=== PATIENT | male | born 1990 | race Caucasian/White ===

== ENCOUNTER 2017-04-27 10:39 | Emergency (ER) | payer SELFPAY ==
[2017-04-27] MEDS ORDERED: IBUPROFEN 800 MG TABLET PO ONE (11:00)
[2017-04-27] MEDS ORDERED: CLINDAMYCIN HCL 150 MG CAPSULE PO ONE (11:00)
[2017-04-27] MEDS ORDERED: OXYCODONE-ACETAMINOPHEN 5-325 MG TABLET PO ONE (11:00)
--- NOTE | 2017-04-27 11:03 | ER Document Report ---
HPI - HPI Patient complains to provider of: dental pain Onset: Last week Onset/Duration: Persistent Quality of pain: Achy Pain Level: 4 Context: Patient presents complaining of dental pain for the past week. Patient noticed that he is started to have facial swelling. Patient denies any fever. Associated Symptoms: Earache, Sore throat, Other - dental pain. denies: Fever Exacerbated by: Denies Relieved by: Denies Similar symptoms previously: Yes Recently seen / treated by doctor: No - ROS ROS below otherwise negative: Yes Systems Reviewed and Negative: Yes All other systems reviewed and negative - CONSTITUTIONAL Constitutional: DENIES: Fever - EENT EENT: REPORTS: Ear Pain Notes: dental pain - GASTROINTESTINAL Gastrointestinal: DENIES: Nausea, Patient vomiting - MUSCULOSKELETAL Musculoskeletal: DENIES: Back Pain, Neck Pain - DERM Skin Color: Normal Skin Problems: None Past Medical History - General Information source: Patient - Social History Smoking Status: Current Every Day Smoker Frequency of alcohol use: None Drug Abuse: None Occupation: none Lives with: Family Family History: Reviewed & Not Pertinent - Medical History Medical History: Negative Renal/ Medical History: Denies: Hx Peritoneal Dialysis Surgical Hx: Negative Vertical Provider Document - CONSTITUTIONAL Agree With Documented VS: Yes Exam Limitations: No Limitations General Appearance: WD/WN, No Apparent Distress - INFECTION CONTROL TRAVEL OUTSIDE OF THE [place] IN LAST 30 DAYS: No - HEENT HEENT: Atraumatic, Normocephalic. negative: Pharyngeal Exudate, Pharyngeal Tenderness, Pharyngeal Erythema, Tympanic Membrane Red, Tympanic Membrane Bulging Mouth Diagram: 1 - fracture, tenderness with gingival induration, no drainable abscess - NECK Neck: Lymphadenopathy-Left - upper anterior cervical chain - RESPIRATORY Respiratory: Breath Sounds Normal, No Respiratory Distress O2 Sat by Pulse Oximetry: 98 - CARDIOVASCULAR Cardiovascular: Regular Rate, Regular Rhythm, No Murmur - MUSCULOSKELETAL/EXTREMETIES Musculoskeletal/Extremeties: MAEW - NEURO Level of Consciousness: Awake, Alert, Appropriate Motor/Sensory: No Motor Deficit - DERM Integumentary: Warm, Dry, No Rash Course - Re-evaluation Re-evalutation: 07/29/17 11:02 The patient has been informed that they may have pre-hypertension or hypertension based on a blood pressure reading in the emergency department. I recommend that patient call the primary care provider listed on their discharge instructions or a physician of their choice by this week to arrange follow-up for further evaluation of possible pre-hypertension or hypertension. - Vital Signs Vital signs: Temp Pulse Resp BP Pulse Ox 98.7 F 104 H 20 166/91 H 98 04/27/17 10:43 04/27/17 10:43 04/27/17 10:43 04/27/17 10:43 04/27/17 10:43 Discharge - Discharge Clinical Impression: Infected dental caries Condition: Stable Disposition: HOME, SELF-CARE Instructions: Clindamycin ([facility]), Oral Narcotic Medication ([facility]), Toothache ([facility] ), Dentist, Dental Infection or Abscess ([facility]) Additional Instructions: Return immediately for any new or worsening symptoms Followup with your dental care provider, call tomorrow to make a followup appointment Prescriptions: Acetaminophen with Codeine [Acetaminophen-Cod #3 Tablet] 1 each PO Q6 PRN #15 tablet PRN Reason: Clindamycin HCl [Cleocin 300 mg Capsule] 300 mg PO TID #21 capsule Naproxen [Naprosyn 250 Nmg Tablet] 1 tab PO BID #14 tablet Forms: Elevated Blood Pressure Referrals: [facility] [Provider Group] - Follow up as needed
[2017-04-27 11:22] VITALS: BP 144/83
== END 2017-04-27 11:22 | disposition home or self-care (01) ==
LOC: ER 10:39
DX: K02.9 Dental caries, unspecified (principal); K08.89 Other specified disorders of teeth and supporting structures; H92.09 Otalgia, unspecified ear; J02.9 Acute pharyngitis, unspecified; F17.200 Nicotine dependence, unspecified, uncomplicated
CPT/HCPCS: 99282

== ENCOUNTER 2018-07-06 13:55 | Emergency (ER) | payer SELFPAY ==
--- NOTE | 2018-07-06 14:58 | ER Document Report ---
ED Medical Screen (RME) - General Chief Complaint: Syncope Stated Complaint: POSSIBLE SYNCOPE Time Seen by Provider: 07/06/18 14:30 Mode of Arrival: Ambulatory Information source: Patient, Relative Notes: 28-year-old male with no reported past medical history presents via private vehicle from home after a syncopal episode and altered mental status just prior to arrival. Patient reports that he awoke from sleep feeling nauseous and ran to the bathroom and that is the last thing he can remember. Girlfriend is with the patient and states that she awoke when the patient ran to the bathroom and then saw him fall backwards and strike his head. She states that when she went into the bathroom the patient was having abnormal movements, not responding to her. She reports that he was incontinent of urine and stool. Patient remained altered for a couple of hours. Patient denies prior similar symptoms, recent illness, drug use. He does report recently quitting smoking and quitting his 10 Monster per day drinking habit. I have greeted and performed a rapid initial assessment of this patient. A comprehensive ED assessment and evaluation of the patient, analysis of test results and completion of medical decision making process we will be contacted by additional ED providers. PHYSICAL EXAMINATION: Vital signs reviewed-tachycardic, hypertensive HEENT: Dried blood on the left tragus. Small tongue laceration LUNGS: No respiratory distress Musculoskeletal: Normal range of motion NEUROLOGICAL: Normal speech, normal gait. PSYCH: Normal mood, normal affect. TRAVEL OUTSIDE OF THE [place] IN LAST 30 DAYS: No - HPI Onset: Just prior to arrival Onset/Duration: Sudden Quality of pain: Throbbing Associated Symptoms: Headache, Nausea Exacerbated by: Denies Relieved by: Denies Similar symptoms previously: No Recently seen / treated by doctor: No - Related Data Smoking: Quit less than 1 year Frequency of alcohol use: None Drug Abuse: None Allergies/Adverse Reactions: No Known Allergies Allergy (Verified 04/27/17 10:43) Past Medical History Renal/ Medical History: Denies: Hx Peritoneal Dialysis Physical Exam - Vital signs Vitals: Temp Pulse Resp BP Pulse Ox 98.6 F 103 H 14 143/68 H 99 07/06/18 14:08 07/06/18 14:08 07/06/18 14:08 07/06/18 14:08 07/06/18 14:08 Course - Vital Signs Vital signs: Temp Pulse Resp BP Pulse Ox 98.6 F 103 H 14 143/68 H 99 07/06/18 14:08 07/06/18 14:08 07/06/18 14:08 07/06/18 14:08 07/06/18 14:08
[2018-07-06 15:38] LABS: APPEARANCE,URINE CLEAR; BILIRUBIN,URINE NEGATIVE (NEGATIVE); COLOR,URINE YELLOW; GLUCOSE, URINE >=500 mg/dL (NEGATIVE); KETONES,URINE NEGATIVE (NEGATIVE); LEUKOCYTE ESTERASE,URINE NEGATIVE (NEGATIVE); NITRITE,URINE NEGATIVE (NEGATIVE); PROTEIN,URINE NEGATIVE (NEGATIVE); URINE SPECIFIC GRAVITY 1.017; UROBILINOGEN,URINE NEGATIVE mg/dL (<2.0)
[2018-07-06 15:42] LABS: HEMATOCRIT 42.5 % (37.9-51.0); HEMOGLOBIN 14.5 g/dL (13.5-17.0); MEAN CORPUSCULAR HEMOGLOBIN 29.5 pg (27.0-33.4); MEAN CORPUSCULAR HGB CONC 34.2 g/dL (32.0-36.0); MEAN CORPUSCULAR VOLUME 86 fl (80-97); PLATELET COUNT 297 10^3/uL (150-450); RED BLOOD COUNT 4.93 10^6/uL (4.35-5.55); RED CELL DISTRIBUTION WIDTH 13.1 % (11.5-14.0); WHITE BLOOD COUNT 22.4 10^3/uL (4.0-10.5)
[2018-07-06 15:47] LABS: ALANINE AMINOTRANSFERASE 95 U/L (21-72); ALBUMIN 4.4 g/dL (3.5-5.0); ALKALINE PHOSPHATASE 59 U/L (38-126); ANION GAP 13 (5-19); ASPARTATE AMINO TRANSFERASE 56 U/L (17-59); BILIRUBIN,DIRECT 0.5 mg/dL (0.0-0.4); BILIRUBIN,TOTAL 0.8 mg/dL (0.2-1.3); BLOOD UREA NITROGEN 14 mg/dL (7-20); CALCIUM 9.9 mg/dL (8.4-10.2); CARBON DIOXIDE 24 mmol/L (22-30); CHLORIDE 101 mmol/L (98-107); GLUCOSE 275 mg/dL (75-110); POTASSIUM 4.8 mmol/L (3.6-5.0); SODIUM 138.2 mmol/L (137-145); TOTAL PROTEIN 7.3 g/dL (6.3-8.2)
--- NOTE | 2018-07-06 15:53 | RADIOLOGY REPORT (SQ) ---
EXAM DESCRIPTION: CT HEAD WITHOUT COMPLETED DATE/TIME: 07/06/2018 3:30 pm REASON FOR STUDY: Headache and lightheadedness after fall COMPARISON: None. TECHNIQUE: Axial images acquired through the brain without intravenous contrast. Images reviewed wi th bone, brain and subdural windows. Additional sagittal and coronal reconstructions were generated. Images stored on PACS. All CT scanners at this facility use dose modulation, iterative reconstruction, and/or weight based d osing when appropriate to reduce radiation dose to as low as reasonably achievable (ALARA). [facility]: Dose Right [facility]: CareDose [facility]: Dose Right [facility]: Teradose 4D [facility]: Smart Nexercise RADIATION DOSE: CT Rad equipment meets quality standard of care and radiation dose reduction techniq ues were employed. CTDIvol: 53.2 mGy. DLP: 1070 mGy-cm. mGy. LIMITATIONS: None. FINDINGS: VENTRICLES: Normal size and contour. CEREBRUM: No masses. No hemorrhage. No midline shift. No evidence for acute infarction. Normal gra y/white matter differentiation. No areas of low density in the white matter. CEREBELLUM: No masses. No hemorrhage. No alteration of density. No evidence for acute infarction. EXTRAAXIAL SPACES: No fluid collections. No masses. ORBITS AND GLOBE: No intra- or extraconal masses. Normal contour of globe without masses. CALVARIUM: No fracture. PARANASAL SINUSES: No fluid or mucosal thickening. SOFT TISSUES: Minimal mucoperiosteal thickening of the left maxillary sinus. Remainder of the visual ized paranasal sinuses are clear. OTHER: No other significant finding. IMPRESSION: NORMAL BRAIN CT WITHOUT CONTRAST. EVIDENCE OF ACUTE STROKE: NO. COMMENT: Quality ID # [id number]: Final reports with documentation of one or more dose reduction techniques (e.g., Automated exposure control, adjustment of the mA and/or kV according to patient size, use of iterative reconstruction technique) TECHNICAL DOCUMENTATION: JOB ID: [id number] [employer]- All Rights Reserved Reading location - IP/workstation name: [email or web address]
[2018-07-06 15:59] LABS: ABSOLUTE LYMPHOCYTES# (MANUAL) 1.3 10^3/uL (0.5-4.7); ABSOLUTE MONOCYTES # (MANUAL) 1.1 10^3/uL (0.1-1.4); ABSOLUTE NEUTROPHILS# (MANUAL) 19.9 10^3/uL (1.7-8.2); BASOPHILS % (MANUAL) 0 % (0-2); EOSINOPHILS % (MANUAL) 0 % (0-6); LYMPHOCYTES % (MANUAL) 6 % (13-45); MONOCYTES % (MANUAL) 5 % (3-13); SEGMENTED NEUTROPHILS % (MAN) 89 % (42-78); TOTAL CELLS COUNTED 100
[2018-07-06 16:00] LABS: RBC MORPHOLOGY COMMENT NORMO-CYTIC/CHROMIC
[2018-07-06 16:01] LABS: PLATELET COMMENT ADEQUATE
[2018-07-06 16:05] LABS: URINE AMPHETAMINES SCREEN NEGATIVE; URINE BARBITURATES SCREEN NEGATIVE; URINE BENZODIAZEPINES SCREEN NEGATIVE; URINE COCAINE SCREEN NEGATIVE; URINE MARIJUANA (THC) SCREEN NEGATIVE; URINE METHADONE SCREEN NEGATIVE; URINE PHENCYCLIDINE SCREEN NEGATIVE
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
[2018-07-06] MEDS ORDERED: LIDOCAINE 1% INJ-PF (10 MG/ML) 30 ML SDV INJ ONE (17:42)
[2018-07-06] MEDS ORDERED: MIDAZOLAM 2 MG/2 ML INJ ONE (19:03)
--- NOTE | 2018-07-06 19:11 | EKG REPORT ---
SEVERITY:- BORDERLINE ECG - SINUS RHYTHM PROBABLE LEFT ATRIAL ABNORMALITY : Confirmed by: Pavithra Hassan 06-Jul-2018 19:10:46
--- NOTE | 2018-07-06 19:24 | ER Document Report ---
Doctor's Note Notes: 07/06/18 19:20 I was requested by Dr. Naranjo to to assist with obtaining CSF sample from patient. This is my only involvement of the care of this patient. CSF was obtained on the second attempt without any additional difficulty. Patient tolerated the procedure well, 5 out of 5 strength both distally and proximally bilateral lower extremities post procedure. No significant pain during the procedure or after the procedure. Procedures - Lumbar Puncture Lumbar puncture Consent obtained: Yes Lumbar puncture pre-procedure: Chloraprep applied Patient position: Sitting Needle size: 22 Lumbar puncture location: l4-5 Anesthetic type: 1% Lidocaine mL's of anesthetic: 5 Amount/type of drainage: 6cc clear Number of attempts: 2 Complications: No
[2018-07-06 20:23] LABS: GLUCOSE,CSF 117 mg/dL (40-70); PROTEIN,CSF 47 mg/dL (12-60)
[2018-07-06 21:47] LABS: APPEARANCE TUBE 1 HAZY; APPEARANCE TUBE 2 CLEAR; APPEARANCE TUBE 3 CLEAR; APPEARANCE TUBE 4 CLEAR; COLOR TUBE 1 PINK; COLOR TUBE 2 COLORLESS; COLOR TUBE 3 PINK; COLOR TUBE 4 COLORLESS; CSF TOTAL VOLUME 2.7 CC; CSF TUBE NUMBER 4; VOLUME TUBE 1 0.5 CC; VOLUME TUBE 2 1.1 CC; VOLUME TUBE 3 0.6 CC; VOLUME TUBE 4 0.5 CC
[2018-07-06 21:56] LABS: RED BLOOD CELL,CSF 433 /uL (0-10); WHITE BLOOD CELL,CSF 1 /uL (0-5)
[2018-07-06 22:04] LABS: CSF TUBE NUMBER 1; RED BLOOD CELL,CSF 1545 /uL (0-10)
[2018-07-06 22:06] LABS: APPEARANCE TUBE 1 HAZY; APPEARANCE TUBE 2 CLEAR; APPEARANCE TUBE 3 CLEAR; APPEARANCE TUBE 4 CLEAR; COLOR TUBE 1 PINK; COLOR TUBE 2 COLORLESS; COLOR TUBE 3 PINK; COLOR TUBE 4 COLORLESS; CSF TOTAL VOLUME 2.7 CC; VOLUME TUBE 1 0.5 CC; VOLUME TUBE 2 1.1 CC; VOLUME TUBE 3 0.6 CC; VOLUME TUBE 4 0.5 CC; WHITE BLOOD CELL,CSF 1 /uL (0-5)
[2018-07-06] MEDS ORDERED: CIPROFLOXACIN HCL/DEXAMETH OTIC DROP 7.5 ML AD ONE (22:13)
[2018-07-06] MEDS ORDERED: AMOXICILLIN TRIHYDRATE 500 MG CAPSULE PO ONE (22:13)
[2018-07-06 23:57] VITALS: BP 122/66
== END 2018-07-06 22:50 | disposition home or self-care (01) ==
LOC: ER 13:55
DX: R56.9 Unspecified convulsions (principal); H66.016 Acute suppurative otitis media with spontaneous rupture of ear drum, recurrent, bilateral; R55 Syncope and collapse; R11.0 Nausea; S09.90XA Unspecified injury of head, initial encounter; S00.31XA Abrasion of nose, initial encounter; S80.811A Abrasion, right lower leg, initial encounter; S80.812A Abrasion, left lower leg, initial encounter; W18.30XA Fall on same level, unspecified, initial encounter; Y92.002 Bathroom of unspecified non-institutional (private) residence as the place of occurrence of the external cause
CPT/HCPCS: 93005; 99285; 96374; 36415; 87070 ×2; 87205; 87206; 87116; 87210; 83735; 85025; 89050; 82945; 84157; 87075; 87077; 80053; 81001; 87186; 80307; 87015; 70450; 93010; 62270; J2250; J3490 ×2

== ENCOUNTER 2018-12-16 20:34 | Emergency (ER) | payer SELFPAY ==
[2018-12-17] MEDS ORDERED: HYDROCODONE/ACETAMINOPHEN 5-325 MG (6 TAB/ER DISP) PO PRN (00:19)
[2018-12-17] MEDS ORDERED: CLINDAMYCIN HCL 150 MG CAPSULE PO ONE (00:19)
--- NOTE | 2018-12-17 00:21 | ER Document Report ---
HPI - HPI Time Seen by Provider: 12/17/18 00:11 Pain Level: 4 Context: Patient is a 28-year-old male that comes to the emergency department for chief complaint of tooth pain and facial swelling. He states he has had a bad toothache for the past 2 days, today he started getting swelling of the face. He denies fever or chills, sore throat, neck pain, or any other complaints. He has had a history of dental infections in the past. - CONSTITUTIONAL Constitutional: DENIES: Fever, Chills - EENT EENT: DENIES: Sore Throat, Ear Pain, Eye problems - NEURO Neurology: DENIES: Headache, Weakness, Vision blurred, Dizzinesss / Vertigo - CARDIOVASCULAR Cardiovascular: DENIES: Chest pain - RESPIRATORY Respiratory: DENIES: Trouble Breathing, Coughing - GASTROINTESTINAL Gastrointestinal: DENIES: Abdominal Pain, Black / Bloody Stools - URINARY Urinary: DENIES: Dysuria, Urgency, Frequency - MUSCULOSKELETAL Musculoskeletal: DENIES: Extremity pain Past Medical History - General Information source: Patient - Social History Smoking Status: Current Every Day Smoker Smoking Education Provided: Yes - <3 min Drug Abuse: None Lives with: Spouse/Significant other Family History: Reviewed & Not Pertinent Patient has suicidal ideation: No Patient has homicidal ideation: No Neurological Medical History: Denies: Hx Cerebrovascular Accident, Hx Seizures Renal/ Medical History: Denies: Hx Peritoneal Dialysis Surgical Hx: Negative - Immunizations Immunizations up to date: Yes Hx Diphtheria, Pertussis, Tetanus Vaccination: Yes Vertical Provider Document - CONSTITUTIONAL General Appearance: WD/WN, No Apparent Distress - INFECTION CONTROL TRAVEL OUTSIDE OF THE [place] IN LAST 30 DAYS: No - HEENT HEENT: Atraumatic, Normocephalic. negative: Normal ENT Exam - Swelling of the right cheek/jaw on the right side, area is soft and there is no induration or fluctuant area. Oropharyngeal exam shows dental caries in the lower jaw, see diagram, normal oropharyngeal exam otherwise. No drainable abscess noted. Mouth Diagram: 1 - Dental caries with surrounding erythema of the gumline, no induration or fluctuance noted, otherwise unremarkable. - NECK Neck: Normal Inspection - RESPIRATORY Respiratory: Breath Sounds Normal, No Respiratory Distress - CARDIOVASCULAR Cardiovascular: Regular Rate, Regular Rhythm - GI/ABDOMEN Gastrointestinal: Abdomen Soft, Abdomen Non-Tender Course - Re-evaluation Re-evalutation: Patient with new onset facial swelling but no evidence of abscess or Tacos's angina at this time. Placed on antibiotics, provided with dental referral, discussed return precautions. Patient states understanding and agreement. - Vital Signs Vital signs: Temp Pulse Resp BP Pulse Ox 98.8 F 105 H 16 179/95 H 98 12/16/18 20:48 12/16/18 20:48 12/16/18 20:48 12/16/18 20:48 12/16/18 20:48 Discharge - Discharge Clinical Impression: Dental infection Condition: Stable Disposition: HOME, SELF-CARE Instructions: Oral Narcotic Medication ([facility]) Additional Instructions: Your examination is consistent with a dental infection. Take antibiotics as prescribed to completion. Take ibuprofen 600 mg every 6 hours for pain, you have been provided with a sma ll amount of medication for severe pain only. Follow-up with the dental clinic referral or this will continue to occur. Return if you worsen including increased facial swelling. [facility] [address] [facility], [id number] Prescriptions: Clindamycin HCl [Cleocin 150 mg Capsule] 150 mg PO Q6 #56 capsule Forms: Elevated Blood Pressure
[2018-12-17 00:46] VITALS: BP 152/94
== END 2018-12-17 00:48 | disposition home or self-care (01) ==
LOC: ER 20:34
DX: K04.7 Periapical abscess without sinus (principal); F17.200 Nicotine dependence, unspecified, uncomplicated
CPT/HCPCS: 99282

== ENCOUNTER 2020-04-14 20:07 | Emergency (ER) | payer SELFPAY ==
[2020-04-14] MEDS ORDERED: NORMAL SALINE 1000 ML 1,000 ML IV ONE (22:06)
--- NOTE | 2020-04-14 22:09 | ER Document Report ---
ED Medical Screen (RME) - General Chief Complaint: High Blood Sugar Stated Complaint: SHORTNESS OF BREATH, BLURRY VISION, NUMB FINGERS Time Seen by Provider: 04/14/20 22:06 Mode of Arrival: Ambulatory Information source: Patient Notes: Patient presents complaining of blurred vision for the past 2 days and numbness to the right fourth and fifth fingers that started today. Patient reports ching ing a blood sugar today that was 587. Patient denies any history of diabetes. Patient reports increased thirst and urination. Patient denies any chronic medical problems. I have greeted and performed a rapid initial assessment of this patient. A comprehensive ED assessment and evaluation of the patient, analysis of test results and completion of the medical decision making process will be conducted by additional ED providers. TRAVEL OUTSIDE OF THE [place] IN LAST 30 DAYS: No - Related Data Allergies/Adverse Reactions: No Known Allergies Allergy (Verified 12/16/18 20:43) Past Medical History Neurological Medical History: Denies: Hx Cerebrovascular Accident, Hx Seizures Renal/ Medical History: Denies: Hx Peritoneal Dialysis - Immunizations Immunizations up to date: Yes Hx Diphtheria, Pertussis, Tetanus Vaccination: Yes Physical Exam - Vital signs Vitals: Temp Pulse Resp BP Pulse Ox 98.5 F 109 H 20 165/107 H 95 04/14/20 20:11 04/14/20 20:11 04/14/20 20:11 04/14/20 20:11 04/14/20 20:11 - Respiratory Respiratory status: No respiratory distress Chest status: Nontender Breath sounds: Normal - Cardiovascular Rhythm: Tachycardia Heart sounds: S1 appreciated, S2 appreciated Murmur: No Course - Vital Signs Vital signs: Temp Pulse Resp BP Pulse Ox 98.5 F 109 H 20 165/107 H 95 04/14/20 20:11 04/14/20 20:11 04/14/20 20:11 04/14/20 20:11 04/14/20 20:11
[2020-04-14 23:51] LABS: ABSOLUTE BASOPHILS # (AUTO) 0.1 10^3/uL (0.0-0.2); ABSOLUTE EOSINOPHILS # (AUTO) 0.6 10^3/uL (0.0-0.6); ABSOLUTE LYMPHOCYTES (AUTO) 3.8 10^3/uL (0.5-4.7); ABSOLUTE MONOCYTES (AUTO) 0.8 10^3/uL (0.1-1.4); ABSOLUTE NEUT (AUTO) 9.6 10^3/uL (1.7-8.2); BASOPHILS % (AUTO) 0.7 % (0-2); EOSINOPHILS % (AUTO) 4.1 % (0-6); HEMOGLOBIN 16.8 g/dL (13.5-17.0); LYMPHOCYTES % (AUTO) 25.5 % (13-45); MEAN CORPUSCULAR HEMOGLOBIN 29.5 pg (27.0-33.4); MEAN CORPUSCULAR VOLUME 84 fl (80-97); MONOCYTES % (AUTO) 5.2 % (3-13); PLATELET COUNT 279 10^3/uL (150-450); RED BLOOD COUNT 5.69 10^6/uL (4.35-5.55); SEGMENTED NEUTROPHILS % (AUTO) 64.5 % (42-78); TOTAL CELLS COUNTED % (AUTO) 100 %; WHITE BLOOD COUNT 14.9 10^3/uL (4.0-10.5)
[2020-04-14 23:58] LABS: VENOUS BLOOD BASE EXCESS 0.6 mmol/L; VENOUS BLOOD HCO3 25.6 mmol/L (20-32); VENOUS BLOOD PCO2 42.2 mmHg (35-63); VENOUS BLOOD PH 7.4 (7.30-7.42)
[2020-04-15 00:02] LABS: APPEARANCE,URINE CLEAR; BILIRUBIN,URINE NEGATIVE (NEGATIVE); COLOR,URINE YELLOW; GLUCOSE, URINE >=500 mg/dL (NEGATIVE); KETONES,URINE NEGATIVE (NEGATIVE); LEUKOCYTE ESTERASE,URINE TRACE (NEGATIVE); NITRITE,URINE NEGATIVE (NEGATIVE); PROTEIN,URINE 100 mg/dL (NEGATIVE); URINE SPECIFIC GRAVITY 1.043; UROBILINOGEN,URINE NEGATIVE mg/dL (<2.0)
[2020-04-15 00:03] LABS: ALBUMIN 4.8 g/dL (3.5-5.0); ALKALINE PHOSPHATASE 99 U/L (38-126); ANION GAP 11 (5-19); ASPARTATE AMINO TRANSFERASE 87 U/L (17-59); BILIRUBIN,DIRECT 0.1 mg/dL (0.0-0.4); BILIRUBIN,TOTAL 0.5 mg/dL (0.2-1.3); BLOOD UREA NITROGEN 10 mg/dL (7-20); CALCIUM 10.2 mg/dL (8.4-10.2); CARBON DIOXIDE 27 mmol/L (22-30); CHLORIDE 96 mmol/L (98-107); GLUCOSE 307 mg/dL (75-110); POTASSIUM 4.5 mmol/L (3.6-5.0); TOTAL PROTEIN 7.9 g/dL (6.3-8.2)
--- NOTE | 2020-04-15 02:52 | ER Document Report ---
ED General - General Chief Complaint: High Blood Sugar Stated Complaint: SHORTNESS OF BREATH, BLURRY VISION, NUMB FINGERS Time Seen by Provider: 04/14/20 22:06 Mode of Arrival: Ambulatory Notes: 04/14/20 22:08 - ED Nursing Note by EULA PAYNE Num: [id number] : 1990 Patient Age: 30 for 1 wk extreme thirsty. pt has family hx of diabetes. tonight pt did check his blood sugar 587 at home. pt denies any pain. pt typically drinks 8-10 lg monster drinks. Initialized on 04/14/20 22:08 - END OF NOTE Poly notes Patient presents complaining of blurred vision for the past 2 days and numbness to the right fourth and fifth fingers that started today. Patient reports ching ing a blood sugar today that was 587. Patient denies any history of diabetes. Patient reports increased thirst and urination. Patient denies any chronic medical problems. my notes 30-year-old male arrives with his with chief complaint of having high blood sugar at home. His grandmother has diabetes but the patient has never had diabetes. He drinks 10 Monster drinks daily for the last 10 years. He has several cavities eroding to the gumline of his left lower molars and multiple other teeth. Patient complains of blurry vision but has not seen an eye doctor. He reports he had a seizure last year. Patient denies any heat exhaustion over the last several days. He has been drinking a lot of water and feeling very thirsty. He has been urinating a lot as well. Patient ate a keto diet at his sister's house today with a lot of meat and some apple. TRAVEL OUTSIDE OF THE [place] IN LAST 30 DAYS: No - HPI Onset: Yesterday Onset/Duration: Sudden, Persistent Quality of pain: No pain Severity: None Pain Level: Denies Associated symptoms: Other - Blurry vision Exacerbated by: Denies Relieved by: Denies Similar symptoms previously: No Recently seen / treated by doctor: No - Related Data Allergies/Adverse Reactions: No Known Allergies Allergy (Verified 12/16/18 20:43) Past Medical History - General Information source: Patient - Social History Smoking Status: Current Every Day Smoker Cigarette use (# per day): Yes Chew tobacco use (# tins/day): No Smoking Education Provided: Yes Frequency of alcohol use: Occasional Drug Abuse: Marijuana Lives with: Family Family History: Reviewed & Not Pertinent Patient has suicidal ideation: No Patient has homicidal ideation: No Neurological Medical History: Reports: Hx Seizures. Denies: Hx Cerebrovascular Accident Renal/ Medical History: Denies: Hx Peritoneal Dialysis - Immunizations Immunizations up to date: Yes Hx Diphtheria, Pertussis, Tetanus Vaccination: Yes Review of Systems - Review of Systems Constitutional: See HPI, Weakness EENT: See HPI, Blurred vision, Other - Dry mouth Cardiovascular: See HPI, Dizziness Respiratory: No symptoms reported Gastrointestinal: No symptoms reported, Nausea - What is a question Genitourinary: No symptoms reported Male Genitourinary: No symptoms reported Musculoskeletal: No symptoms reported - 40 minutes you were seen after an overdose on narcotic pain medication. Please understand that you could have today had EMS not arrived and saved your life. Please never take these pain medications unless they are prescribed to you and only take them exactly as directed. Please follow-up with your primary care doctor as needed. Skin: No symptoms reported - Will have to bring in her to Hematologic/Lymphatic: No symptoms reported Neurological/Psychological: No symptoms reported Physical Exam - Vital signs Vitals: Temp Pulse Resp BP Pulse Ox 98.5 F 109 H 20 165/107 H 95 04/14/20 20:11 04/14/20 20:11 04/14/20 20:11 04/14/20 20:11 04/14/20 20:11 Interpretation: Hypertensive, Tachycardic, Tachypneic - General General appearance: Alert - HEENT Head: Normocephalic, Atraumatic Eyes: Normal Pupils: PERRL External canal: Normal Mouth/Lips: Normal Mucous membranes: Dry Pharynx: Normal Neck: Normal - Respiratory Respiratory status: No respiratory distress Chest status: Nontender Breath sounds: Normal Chest palpation: Normal - Cardiovascular Rhythm: Regular Heart sounds: Normal auscultation Murmur: No Course - Vital Signs Vital signs: Temp Pulse Resp BP Pulse Ox 98.9 F 109 H 23 H 138/94 H 96 04/15/20 02:08 04/14/20 20:11 04/15/20 02:08 04/15/20 02:08 04/15/20 02:08 - Laboratory Result Diagrams: 04/14/20 23:15 04/14/20 23:15 Laboratory results interpreted by me: 04/14/20 04/14/20 04/14/20 23:15 23:15 23:15 WBC 14.9 H RBC 5.69 H Absolute Neuts (auto) 9.6 H Sodium 133.9 L Chloride 96 L Glucose 307 H AST 87 H ALT 153 H Urine Protein 100 H Urine Glucose (UA) >=500 H Ur Leukocyte Esterase TRACE H Discharge - Discharge Clinical Impression: Hyperglycemia, Blurry vision, bilateral, Dental caries Condition: Good Disposition: HOME, SELF-CARE Additional Instructions: Follow-up with personal doctor did also follow-up with eye doctor like Dr. Tan across the street. Return to ER as needed try to stick to water instead of any sugary drinks. You may go to withdrawal if you suddenly stop your monster drinks to try to decrease these as much as possible for eventual complete cessation. Try to stick to fresh vegetables and avoid fried foods or any processed foods from restaurants or fast food places. Try to keep teeth in good repair because cavities and diabetes are poor outcome for your body. Prescriptions: Glipizide [Glucotrol 10 mg Tablet] 10 mg PO DAILY #30 tablet Cephalexin Monohydrate [Keflex 500 mg Capsule] 500 mg PO BID #20 capsule
[2020-04-15] MEDS ORDERED: CEPHALEXIN 500 MG CAPSULE PO ONE (03:35)
[2020-04-15] MEDS ORDERED: GLIPIZIDE XL 5 MG TAB.ER.24 PO ONE ×2 (03:35→04:28)
--- NOTE | 2020-04-15 03:42 | RADIOLOGY REPORT (SQ) ---
CHEST 1 VIEW on 04/15/2020 at 3:27 AM CLINICAL INDICATION: Tachycardia COMPARISON: None FINDINGS: The lungs are clear. Cardiac, hilar and mediastinal contours are within normal limits. Pulmonary vascularity is within normal limits. No bony abnormality is noted. IMPRESSION: No active disease.
[2020-04-15 04:04] VITALS: BP 142/91
--- NOTE | 2020-04-15 06:41 | EKG REPORT ---
SEVERITY:- BORDERLINE ECG - SINUS RHYTHM PROBABLE LEFT ATRIAL ABNORMALITY : Confirmed by: Josiah Esposito MD 15-Apr-2020 06:41:14
== END 2020-04-15 04:39 | disposition home or self-care (01) ==
LOC: ER 20:07
DX: H53.8 Other visual disturbances (principal); K02.9 Dental caries, unspecified; R73.9 Hyperglycemia, unspecified; R06.02 Shortness of breath; R20.0 Anesthesia of skin; R00.0 Tachycardia, unspecified; F17.210 Nicotine dependence, cigarettes, uncomplicated
CPT/HCPCS: 93005; 99285; 96360; 36415; 85025; 80053; 81001; 82803; 71045; 93010; J7030